=== PATIENT | female | born 1990 | race Caucasian/White ===

== ENCOUNTER 2018-02-10 02:10 | Observation (INO) | payer MEDICAID ==
[~2018-02-10] VITALS: Ht 175.3 cm; Wt 93.0 kg
[2018-02-10 02:52] VITALS: BP 119/63
[2018-02-10] MEDS ORDERED: FERR-89 PO (02:52)
[2018-02-10] MEDS ORDERED: PREN1TAB80 PO (02:52)
[2018-02-10 03:25] LABS: BILIRUBIN,URINE NEGATIVE (NEGATIVE); GLUCOSE, URINE (UA) NEGATIVE (NEGATIVE); KETONES,URINE NEGATIVE (NEGATIVE); LEUKOCYTE ESTERASE ,URINE NEGATIVE (NEGATIVE); NITRATE,URINE NEGATIVE (NEGATIVE); OCCULT BLOOD,URINE NEGATIVE (NEGATIVE); PROTEIN,URINE NEGATIVE (NEGATIVE); UROBILINOGEN,URINE 0.2 mg/dL (<=1.0)
[2018-02-10 03:31] LABS: APPEARANCE,URINE CLEAR (CLEAR)
[2018-02-10 03:39] LABS: BACTERIA,URINE None Seen /HPF (None Seen); RBC,URINE 0-2 /HPF (0-2); SQUAMOUS EPITHELIAL CELL,UR Few /LPF (None Seen); WBC,URINE 0-2 /HPF (0-5)
== END 2018-02-10 04:10 | disposition home or self-care (01) ==
LOC: 4S 02:10
PROVIDERS: ADMIT Obstetrics & Gynecology; ATTEND Obstetrics & Gynecology
DX: O26.892 Other specified pregnancy related conditions, second trimester (principal); R10.30 Lower abdominal pain, unspecified; O99.012 Anemia complicating pregnancy, second trimester; Z3A.24 24 weeks gestation of pregnancy
CPT/HCPCS: 59025; 80307; 80349

== ENCOUNTER 2020-02-26 22:38 | Emergency (ER) | payer MEDICAID, OTHER ==
[~2020-02-26] VITALS: Ht 175.3 cm; Wt 100.0 kg
[~2020-02-26 22:38] MED LIST: FERR-89 PO; PREN1TAB80 PO
[2020-02-26] MEDS ORDERED: IBUPROFEN 800 MG TABLET PO ONE (23:45)
[2020-02-27] MEDS ORDERED: BUPIVACAINE HCL/PF 0.25% 10 ML VIAL INJ ONE
[2020-02-27] MEDS ORDERED: LIDOCAINE 1% 10 ML VIAL INJ ONE
[2020-02-27 00:09] VITALS: BP 127/77
== END 2020-02-27 00:37 | disposition home or self-care (01) ==
LOC: EMS 22:44
DX: K02.9 Dental caries, unspecified (principal); K04.01 Reversible pulpitis; J45.909 Unspecified asthma, uncomplicated; F17.210 Nicotine dependence, cigarettes, uncomplicated; Z88.8 Allergy status to other drugs, medicaments and biological substances; Z79.899 Other long term (current) drug therapy
CPT/HCPCS: 64400; 99284; J3490 ×2